=== PATIENT | male | born 1970 | race Caucasian/White ===

== ENCOUNTER 2022-09-27 09:05 | Outpatient (REF) | payer OTHER, SELFPAY ==
[2022-09-27 11:56] LABS: Hematocrit 41.6 % (42.0-52.0); Hemoglobin 14.3 g/dl (14.0-18.0); Mean Corpuscular HGB Conc 34.4 g/dl (31.0-36.0); Mean Corpuscular Hemoglobin 34.5 pg (27.0-33.0); Mean Corpuscular Volume 100.2 fL (80.0-98.0); Mean Platelet Volume 10.2 fL (9.4-12.4); Platelet Count 258 X10*3/uL (160-400); Red Blood Count 4.15 X10*6/uL (4.60-5.80); Red Cell Distribution Width 12.6 % (11.0-16.0); White Blood Count 7.5 X10*3/uL (4.8-10.8)
[2022-09-27 12:35] LABS: Alanine Aminotransferase 26 U/L (0-40); Albumin Level 4.3 g/dL (3.5-5.0); Alkaline Phosphatase 59 U/L (39-117); Anion Gap 13 (12-20); Aspartate Amino Transferase 29 U/L (5-37); Bilirubin Total 0.4 mg/dL (0.0-1.0); Blood Urea Nitrogen 16 mg/dL (9-16); Calcium 9.4 mg/dL (8.4-10.2); Carbon Dioxide 27 mmol/L (22-29); Chloride 106 mmol/L (96-108); Cholesterol 195 mg/dL; Estimated Glomerular Filt Rate > 60; Glucose Fasting 92 mg/dL (60-99); HDL Cholesterol 47 mg/dL; LDL Cholesterol Calculated 125 mg/dl; Sodium 141 mmol/L (135-145); TSH reflex Free T4 1.25 uIU/mL (0.32-4.0); Total Protein 7.6 g/dL (6.5-8.0); Triglycerides 119 mg/dL
[2022-10-01 20:47] LABS: PSA, Ultra Sensitive 0.62 ng/mL
== END 2022-09-27 09:06 | disposition home or self-care (01) ==
LOC: HO.WFDLDS 09:05
PROVIDERS: Visit Provider Hospitalist
DX: Z00.00 Encounter for general adult medical examination without abnormal findings (principal); R35.0 Frequency of micturition; R89.9 Unspecified abnormal finding in specimens from other organs, systems and tissues; Z13.220 Encounter for screening for lipoid disorders; Z12.5 Encounter for screening for malignant neoplasm of prostate
CPT/HCPCS: 36415; 80053; 80061; 84153; 84443; 85027

== ENCOUNTER 2023-01-30 09:27 | Outpatient (REF) | payer OTHER, SELFPAY ==
[2023-01-30 11:36] LABS: MANUAL DIFF FLAG NO
[2023-01-30 11:45] LABS: Basophils Absolute Auto 0.1 X10*3/uL (0.0-0.2); Basophils Percent Auto 0.8 % (0-2); Eosinophils Absolute Auto 0.5 X10*3/uL (0.0-0.4); Eosinophils Percent Auto 5.8 % (0-4); Hematocrit 44.5 % (42.0-52.0); Hemoglobin 14.9 g/dl (14.0-18.0); Imm Gran Abs Auto 0.02 X10*3/uL (0.00-0.03); Imm Gran Pct Auto 0.3 % (0.0-0.4); Lymphocytes Percent Auto 25.9 % (20-40); Mean Corpuscular HGB Conc 33.5 g/dl (31.0-36.0); Mean Corpuscular Hemoglobin 33.3 pg (27.0-33.0); Mean Corpuscular Volume 99.3 fL (80.0-98.0); Mean Platelet Volume 9.6 fL (9.4-12.4); Monocytes Absolute Auto 0.9 X10*3/uL (0.1-1.2); Monocytes Percent Auto 11.3 % (2-11); Neutrophils Absolute Auto 4.4 x10*3/uL (2.0-8.3); Neutrophils Percent Auto 55.9 % (45-73); Platelet Count 270 X10*3/uL (160-400); Red Blood Count 4.48 X10*6/uL (4.60-5.80); Red Cell Distribution Width 12.5 % (11.0-16.0); White Blood Count 7.8 X10*3/uL (4.8-10.8)
[2023-01-30 12:34] LABS: Anion Gap 12 (12-20); Blood Urea Nitrogen 12 mg/dL (9-16); Calcium 9.1 mg/dL (8.4-10.2); Carbon Dioxide 28 mmol/L (22-29); Chloride 104 mmol/L (96-108); Estimated Glomerular Filt Rate > 60; Glucose Random 95 mg/dL (60-115); Potassium 4.6 mmol/L (3.3-5.1); Sodium 139 mmol/L (135-145)
== END 2023-01-30 09:28 | disposition home or self-care (01) ==
LOC: HO.WFDLDS 09:27
PROVIDERS: Visit Provider Hospitalist
DX: R89.9 Unspecified abnormal finding in specimens from other organs, systems and tissues (principal); I10 Essential (primary) hypertension
CPT/HCPCS: 36415; 80048; 85025

== ENCOUNTER 2024-06-07 14:06 | Outpatient (AMB) | payer OTHER, SELFPAY ==
[2024-06-07 14:25] VITALS: BP 144/77; PULSE 82; RESP 12; O2SAT 96; BMI 37.3
--- NOTE | 2024-06-07 14:25 | MHC.PC.OV ---
Vital Signs 06/07/24 14:25 Height 6 ft Weight 275 lb 6 oz BMI 37.3 BP 144/77 H Blood Pressure Location Rt brachial Position Sitting Respiration 12 Pulse 82 Pulse Source Pulse Oximeter Pulse Oximetry (%) 96 Oxygen Delivery Method Room Air Intake Visit Reasons: [facility] from [facility] Intake Note: Patient reports transferring care from Pratibha Bell DNP. Patient reports he feels he has to use the bathroom (urinate) constantly without being able to hold it. Patient is concerned due to working outside if he can have something that states he cannot be refused a bathroom in a public area. Bellhop Captain Required: No Accompanied by: Self / Same As Patient Allergies No Known Allergies Allergy (Verified 06/07/24 14:29) Tobacco use date assessed: 06/07/24 Dental Screening Dental Screen Date: 06/07/24 Did you have a dental visit in the last 12 months?: Yes Did you have a dental problem in the last 6 months where you did not have access to dental care?: No Was dental information given to patient?: Patient has dentist HPI HPI Comments History of Present Illness Details 54 year old male with a past medical history of hypertension, obesity presenting [facility] care CV: On amlodipine 5mg daily, lisinopril 20mg daily, hctz 25mg daily. BP 144/77. Reports daytime polyuria. Gets up one time to urinate at night, like clockwork at 2-3 am. Last psa normal. Not following with urology. Takes HCTZ in morning. Drinks atleast 2L water during the day. Works in asphalt/paving. It has been extremely hot for the past few weeks. ROS see HPI PHYSICAL EXAM: GENERAL: Alert and oriented x 3. NAD EYES: EOMI. Anicteric. HENT: Moist mucous membranes. No scleral icterus. No cervical lymphadenopathy. LUNGS: Clear to auscultation bilaterally. CARDIOVASCULAR: Regular rate and rhythm. No murmur. No JVD. ABDOMEN: Soft, non-tender +bs EXTREMITIES: No edema. Non-tender. SKIN: No rashes or lesions. Warm. NEUROLOGIC: No focal neurological deficits. CN II-XII grossly intact PSYCHIATRIC: Cooperative. Appropriate mood and affect [facility] Medical History Bilateral tibial fractures Hearing Loss Hypertension Surgical History No pertinent past surgical history Family History Mother Cancer Father Dementia Paternal Grandfather Dementia Social History Household Members: Spouse Housing: Apartment Alcohol intake: former Patient Tobacco Use Status: Former Tobacco user e-Cigarette/Vaping Use: Never Used Second Hand Smoke Exposure: No Substance Use Type: Marijuana service: No Current occupational status: employed Current occupational exposures/hazards: No Cognitive needs: No Hearing needs: Yes (Motor cross racing. Concern for hearing loss) Vision needs: No Questionnaire PHQ-9 Over the last 2 weeks, how often have you been bothered by any of the following problems? 1. Little interest or pleasure in doing things: not at all 2. Feeling down, depressed, or hopeless: not at all 3. Trouble falling or staying asleep, or sleeping too much: not at all 4. Feeling tired or having little energy: not at all 5. Poor appetite or overeating: not at all 6. Feeling bad about yourself - or that you are a failure or have let yourself or your family down: not at all 7. Trouble concentrating on things, such as reading the newspaper or watching television: not at all 8. Moving or speaking so slowly that other people could have noticed. Or the opposite - being so fidgety or restless that you have been moving around a lot more than usual: not at all 9. Thoughts that you would be better off or of hurting yourself in some way: not at all Total score: 0 Depression Screening Interpretation: Negative (neg) Depression Screening Done: Yes 61272 - PHQ-9 Billing: Yes Source: Developed by Drs. Fredo Bergman, Mariela Perez, Nehemias Lacy and colleagues, with an educational chantal from [employer]. Thrive Questionnaire Date Thrive assessed: 06/07/24 I am a: Patient What is your living situation today?: I have a steady place to live Within the past 12 months, did the food you bought not last and you didn't have the money to get more?: Never true Within the past 12 months, did you worry whether your food would run out before you got money to buy more?: Never true Do you have trouble paying for medicines?: No Do you have trouble getting transportation to medical appointments?: No Do you have trouble paying your heating and electricity bill?: No Do you have trouble taking care of your child, family member or friend?: No Do you have trouble with day-to-day activities such as bathing, preparing meals, shopping, managing finances, etc.?: No Are you currently unemployed and looking for a job?: No Are you interested in more education?: No Please select the resources that you would like help with: None Currently or been in a relationship where the following occur: No concerns reported THRIVE Score: 0 AUDIT C Alcohol Use Questionnaire (AUDIT-C) 1. How often do you have a drink containing alcohol?: Never 3. How often do you have six or more drinks on one occasion?: Never Total Score: 0 ANA-7 AMB Questionnaire ANA-7 Date ANA - 7 assessed: 06/07/24 Feeling nervous, anxious, or on edge: 2 = More than half the days Not being able to stop or control worryin = Not at all Worrying too much about different things: 2 = More than half the days Trouble relaxin = Not at all Being so restless that it is hard to sit still: 0 = Not at all Becoming easily annoyed or irritable: 2 = More than half the days Feeling afraid as if something awful might happen: 0 = Not at all Total ANA-7 score (0-4 normal; 5-9 mild; 10-14 moderate; 15-21 severe): 6 Source: Developed by Drs. Fredo Bergman, Mariela Perez, Nehemias Lacy and colleagues, with an educational chantal from [employer]. ANA-7 Assessment Billing ANA-7 Assessment Tool: ANA-7 Assessment 47258 Physical exam (Primary Care) Vital Signs: Last Vital Signs Pulse 82 06/07/24 14:25 Resp 12 06/07/24 14:25 BP 144/77 H 06/07/24 14:25 Pulse Ox 96 06/07/24 14:25 Oxygen Delivery Method Room Air 06/07/24 14:25 BMI result Body Mass Index 37.3 Tobacco/Smoking Status: Tobacco use Status Tobacco use date assessed 06/07/24 06/07/24 14:34 Patient Tobacco Use Status Former Tobacco user 06/07/24 14:35 e-Cigarette/Vaping Use Never Used 06/07/24 14:35 PHQ-9: PHQ-9 Score PHQ-9: Total score 0 06/07/24 14:40 Depression Screening Interpretation: Negative (neg) Thrive Assessment: Date of Thrive Assessment Date Thrive assessed 06/07/24 06/07/24 14:34 Currently or been in a relationship where the following occur: No concerns reported Assessment and Plan Assessment & Plan (1) Urinary frequency: Code(s): R35.0 - Frequency of micturition Plan: Check labs DC hctz. Increase lisinopril 20 to 40, amlodipine 5 to 10. If LE/edema occurs or BP uncontrolled will call the office (2) Hypertension: Code(s): I10 - Essential (primary) hypertension Qualifiers: Hypertension type: primary hypertension Qualified Code(s): I10 - Essential (primary) hypertension Orders: Orders Comprehensive Met. Panel 06/07/24 I10 - Essential (primary) hypertension, R71.8 - Other abnormality of red blood cells, Z12.5 - Encounter for screening for malignant neoplasm of prostate, Z13.220 - Encounter for screening for lipoid disorders TSH reflex Free T4 06/07/24 I10 - Essential (primary) hypertension, R71.8 - Other abnormality of red blood cells, Z12.5 - Encounter for screening for malignant neoplasm of prostate, Z13.220 - Encounter for screening for lipoid disorders Prostate Specific Antigen 06/07/24 I10 - Essential (primary) hypertension, R71.8 - Other abnormality of red blood cells, Z12.5 - Encounter for screening for malignant neoplasm of prostate, Z13.220 - Encounter for screening for lipoid disorders UA CC w/rflx Micro + Cult 06/07/24 I10 - Essential (primary) hypertension Hemoglobin A1c 06/07/24 I10 - Essential (primary) hypertension Complete Blood Count Auto Diff 06/07/24 I10 - Essential (primary) hypertension, R71.8 - Other abnormality of red blood cells, Z12.5 - Encounter for screening for malignant neoplasm of prostate, Z13.220 - Encounter for screening for lipoid disorders Vitamin B12 and Folate 06/07/24 I10 - Essential (primary) hypertension, R71.8 - Other abnormality of red blood cells, Z12.5 - Encounter for screening for malignant neoplasm of prostate, Z13.220 - Encounter for screening for lipoid disorders Referrals Cologuard Test Z12.11 - Encounter for screening for malignant neoplasm of colon, Z12.12 - Encounter for screening for malignant neoplasm of rectum Medications: New lisinopril 40 mg PO DAILY 90 tabs 3RF amlodipine 10 mg PO DAILY 90 tabs 3RF lisinopril 40 mg PO DAILY 90 tabs 3RF amlodipine 10 mg PO DAILY 90 tabs 3RF Discontinued amlodipine Discontinued Reason: Doctor's Order 5 mg PO DAILY 30 tabs 0RF I10 - Essential (primary) hypertension hydrochlorothiazide Discontinued Reason: Doctor's Order 25 mg PO DAILY 90 tabs 0RF I10 - Essential (primary) hypertension lisinopril Discontinued Reason: Doctor's Order 20 mg PO DAILY 30 tabs 0RF I10 - Essential (primary) hypertension Coding Level of Care Code Est Pt Level 4 (71968) Complex EM visit Add On G2211 Diagnoses Urinary frequency R35.0 Primary hypertension I10 Hypertension type: primary hypertension Additional Codes ANA-7 Assessment Billing - ANA-7 Assessment Tool: ANA-7 Assessment 39855 ([id number])
== END 2024-06-07 14:59 | disposition home or self-care (01) ==
PROVIDERS: PCP Internal Medicine; Visit Provider Internal Medicine
DX: R35.0 Frequency of micturition (principal); I10 Essential (primary) hypertension
CPT/HCPCS: 99214; G2211

== ENCOUNTER 2024-06-07 15:06 | Outpatient (REF) | payer OTHER, SELFPAY ==
[2024-06-07 17:35] LABS: MANUAL DIFF FLAG NO
[2024-06-07 17:37] LABS: Appearance Urine Clear; Color Urine Yellow; Glucose Urine UA Negative (Negative); Leukocyte Esterase Urine Negative (Negative); Nitrite Urine Negative (Negative); PH 5.5 (5.0-9.0); Urine Blood Negative (Negative); Urine Ketones Negative (Negative); Urine Protein Negative (Neg-Trace)
[2024-06-07 17:45] LABS: Basophils Absolute Auto 0.1 X10*3/uL (0.0-0.2); Basophils Percent Auto 0.6 % (0-2); Eosinophils Absolute Auto 0.3 X10*3/uL (0.0-0.4); Eosinophils Percent Auto 3.2 % (0-4); Hematocrit 43.3 % (42.0-52.0); Hemoglobin 14.8 g/dl (14.0-18.0); Imm Gran Abs Auto 0.04 X10*3/uL (0.00-0.03); Imm Gran Pct Auto 0.5 % (0.0-0.4); Lymphocytes Percent Auto 24.8 % (20-40); Mean Corpuscular HGB Conc 34.2 g/dl (31.0-36.0); Mean Corpuscular Hemoglobin 33.3 pg (27.0-33.0); Mean Corpuscular Volume 97.5 fL (80.0-98.0); Mean Platelet Volume 9.6 fL (9.4-12.4); Neutrophils Absolute Auto 4.8 x10*3/uL (2.0-8.3); Neutrophils Percent Auto 58.9 % (45-73); Platelet Count 279 X10*3/uL (160-400); Red Blood Count 4.44 X10*6/uL (4.60-5.80); White Blood Count 8.2 X10*3/uL (4.8-10.8)
[2024-06-07 17:55] LABS: Alanine Aminotransferase 46 U/L (0-40); Albumin Level 4.4 g/dL (3.5-5.0); Alkaline Phosphatase 53 U/L (39-117); Anion Gap 16 (12-20); Aspartate Amino Transferase 33 U/L (5-37); Bilirubin Total 0.5 mg/dL (0.0-1.0); Blood Urea Nitrogen 20 mg/dL (9-16); Calcium 9.7 mg/dL (8.4-10.2); Carbon Dioxide 23 mmol/L (22-29); Chloride 105 mmol/L (96-108); Estimated Glomerular Filt Rate > 60; Glucose Random 80 mg/dL (60-115); Potassium 3.5 mmol/L (3.3-5.1); Sodium 140 mmol/L (135-145); Total Protein 7.8 g/dL (6.5-8.0)
[2024-06-07 17:58] LABS: Estimated Average Glucose 105 mg/dL; Hemoglobin A1c % 5.3 % (<6.0)
[2024-06-07 18:12] LABS: TSH reflex Free T4 1.75 uIU/mL (0.32-4.0)
[2024-06-07 18:23] LABS: Folate 11.6 ng/mL (> or = 4.0); Prostate Specific Antigen 0.53 ng/mL (<0.05-4.0); Vitamin B12 736 pg/mL (200-900)
== END 2024-06-07 15:07 | disposition home or self-care (01) ==
LOC: HO.WFDLDS 15:06
PROVIDERS: Visit Provider Internal Medicine
DX: I10 Essential (primary) hypertension (principal); Z12.5 Encounter for screening for malignant neoplasm of prostate; R71.8 Other abnormality of red blood cells; Z13.220 Encounter for screening for lipoid disorders
CPT/HCPCS: 36415; 80053; 81003; 82607; 82746; 83036; 84153; 84443; 85025

== ENCOUNTER 2024-07-05 15:40 | Outpatient (AMB) | payer OTHER, SELFPAY ==
--- NOTE | 2024-07-05 15:48 | A.OFFPC_ITS ---
Vital Signs 07/05/24 15:51 Height 6 ft Weight 299 lb BMI 40.5 BP 124/72 Blood Pressure Location Lt brachial Position Sitting Pulse 74 Pulse Oximetry (%) 93 Oxygen Delivery Method Room Air Intake Visit Reasons: bp recheck Intake Note: follow up htn. Pinched nerve right side of neck. Right sided finger numbness. Allergies No Known Allergies Allergy (Verified 07/06/24 13:21) Tobacco use date assessed: 06/07/24 Dental Screening Dental Screen Date: 06/07/24 HPI HPI Comments History of Present Illness Details 54 year old male with a past medical his tory of hypertension, obesity presenting for follow up htn CV: On amlodipine 10mg daily (increased from 5mg daily), lisinopril 40mg daily (increased from 20mg daily). Normotensive. Reports daytime polyuria. Gets up one time to urinate at night, like clockwork at 2-3 am. Last psa normal. Not following with urology. Drinks atleast 2L water during the day. Works in asphalt/paving. It has been extremely hot for the past few weeks. Take off hctz with some improvement Reports right neck pain & spasm, pain in the right shoulder, painful numbness and in upper arm, distal forearm and first 3 fingers. ROS see HPI PHYSICAL EXAM: GENERAL: Alert and oriented x 3. NAD EYES: EOMI. Anicteric. HENT: Moist mucous membranes. No scleral icterus. No cervical lymphadenopathy. LUNGS: Clear to auscultation bilaterally. CARDIOVASCULAR: Regular rate and rhythm. No murmur. No JVD. ABDOMEN: Soft, non-tender +bs EXTREMITIES: No edema. Non-tender. SKIN: No rashes or lesions. Warm. NEUROLOGIC: No focal neurological deficits. CN II-XII grossly intact PSYCHIATRIC: Cooperative. Appropriate mood and affect [facility] Medical History Bilateral tibial fractures Hearing Loss Hypertension Surgical History No pertinent past surgical history Family History Mother Cancer Father Dementia Paternal Grandfather Dementia Social History Household Members: Spouse Housing: Apartment Alcohol intake: former Patient Tobacco Use Status: Former Tobacco user e-Cigarette/Vaping Use: Never Used Second Hand Smoke Exposure: No Substance Use Type: Marijuana service: No Current occupational status: employed Current occupational exposures/hazards: No Cognitive needs: No Hearing needs: Yes (Motor cross racing. Concern for hearing loss) Vision needs: No Questionnaire Thrive Questionnaire Date Thrive assessed: 06/07/24 ANA-7 AMB Questionnaire ANA-7 Date ANA - 7 assessed: 06/07/24 Source: Developed by Drs. Fredo Bergman, Mariela Perez, Nehemias Lacy and colleagues, with an educational chantal from [employer]. Physical exam (Primary Care) Vital Signs: Last Vital Signs Pulse 74 07/05/24 15:51 BP 124/72 07/05/24 15:51 Pulse Ox 93 07/05/24 15:51 Oxygen Delivery Method Room Air 07/05/24 15:51 BMI result Body Mass Index 40.5 Tobacco/Smoking Status: Tobacco use Status Tobacco use date assessed 06/07/24 07/05/24 15:55 Patient Tobacco Use Status Former Tobacco user 07/05/24 15:55 e-Cigarette/Vaping Use Never Used 07/05/24 15:55 Thrive Assessment: Date of Thrive Assessment Date Thrive assessed 06/07/24 07/05/24 15:55 Assessment and Plan Assessment & Plan (1) Cervical radiculopathy: Code(s): M54.12 - Radiculopathy, cervical region Plan: Prednisone ordered. Gabapentin prior to bed Neck xray ordered Referral to physiatry placed (2) Hypertension: Code(s): I10 - Essential (primary) hypertension Qualifiers: Hypertension type: primary hypertension Qualified Code(s): I10 - Essential (primary) hypertension Plan: Controlled on current medication Weight loss, salt restriction recommended Orders: Orders XR cervical spine 3V 07/06/24 M54.12 - Radiculopathy, cervical region, M54.2 - Cervicalgia Referrals Physiatry Referral M54.12 - Radiculopathy, cervical region, M54.2 - Cervicalgia Medications: New gabapentin 600 mg (2 x 300 mg) PO BEDTIME 180 caps 0RF 90 days prednisone 40 mg (2 x 20 mg) PO DAILY 10 tabs 0RF 5 days Coding Level of Care Code Est Pt Level 4 (60823) Complex EM visit Add On G2211 Diagnoses Cervical radiculopathy M54.12 Primary hypertension I10 Hypertension type: primary hypertension
[2024-07-05 15:51] VITALS: BP 124/72; PULSE 74; O2SAT 93; BMI 40.5
== END 2024-07-05 16:24 | disposition home or self-care (01) ==
PROVIDERS: PCP Internal Medicine; Visit Provider Internal Medicine
DX: M54.12 Radiculopathy, cervical region (principal); I10 Essential (primary) hypertension
CPT/HCPCS: 99214; G2211

== ENCOUNTER 2024-07-06 14:00 | Outpatient (REF) | payer OTHER, SELFPAY ==
--- NOTE | ~2024-07-06 | XR_ITS ---
EXAMINATION: XR CERVICAL SPINE CLINICAL INFORMATION: Radiculopathy, cervical region. COMPARISON: None available. TECHNIQUE: 3 views of the cervical spine were obtained. FINDINGS: Mild straightening of the normal cervical lordosis. No fractures. Jqfc-cn-[id number] degenerative disc disease in the cervical spine, most notable at C5-C6 and C6-C7, characterized by endplate and uncovertebral osteophytes. Mild facet arthropathy. Pre-vertebral soft tissues are normal. Vertebral body heights are normal. No spondylolisthesis. XR/XR cervical spine 3V IMPRESSION: Tdfz-ns-[id number] degenerative disc disease in the cervical spine, most notable at C5-C6 and C6-C7. Electronically signed by: Po Spicer MD 07/29/2024 07:49 PM EDT
== END 2024-07-06 14:01 | disposition home or self-care (01) ==
LOC: HO.HMGCX 14:00
PROVIDERS: PCP Internal Medicine; Visit Provider Physician Assistant
DX: M54.12 Radiculopathy, cervical region (principal); M54.2 Cervicalgia
CPT/HCPCS: 72040

== ENCOUNTER 2025-01-06 08:45 | Outpatient (AMB) | payer OTHER, SELFPAY ==
[2025-01-06 08:58] VITALS: BP 151/76; PULSE 68; RESP 16; O2SAT 99; BMI 43.0
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
[2025-01-06 09:09] VITALS: BP 145/79
== END 2025-01-06 09:22 | disposition home or self-care (01) ==
PROVIDERS: PCP Internal Medicine; Visit Provider Internal Medicine
DX: M25.561 Pain in right knee (principal); M25.562 Pain in left knee; G89.29 Other chronic pain; I10 Essential (primary) hypertension

== ENCOUNTER → 2025-01-06 08:45 | Outpatient (BNVA) | payer OTHER, SELFPAY | PROVIDERS: PCP Internal Medicine; Visit Provider Internal Medicine | DX: M25.561 Pain in right knee (principal); M25.562 Pain in left knee; G89.29 Other chronic pain; I10 Essential (primary) hypertension; E66.9 Obesity, unspecified; Z68.41 Body mass index [BMI] 40.0-44.9, adult; Z79.899 Other long term (current) drug therapy | CPT/HCPCS: 99212 ==

== ENCOUNTER 2025-01-28 15:14 | Outpatient (REF) | payer OTHER, SELFPAY ==
[2025-01-29 09:18] LABS: Estimated Average Glucose 105 mg/dL; Hemoglobin A1c % 5.3 % (<6.0)
[2025-01-29 09:32] LABS: Alanine Aminotransferase 63 U/L (0-40); Albumin Level 4.4 g/dL (3.5-5.0); Alkaline Phosphatase 64 U/L (39-117); Anion Gap 12 (12-20); Aspartate Amino Transferase 34 U/L (5-37); Bilirubin Total 0.4 mg/dL (0.0-1.0); Blood Urea Nitrogen 13 mg/dL (9-16); Calcium 9.5 mg/dL (8.4-10.2); Carbon Dioxide 24 mmol/L (22-29); Chloride 107 mmol/L (96-108); Estimated Glomerular Filt Rate > 60; Glucose Random 72 mg/dL (60-115); Potassium 4.6 mmol/L (3.3-5.1); Sodium 138 mmol/L (135-145); Total Protein 8.1 g/dL (6.5-8.0)
[2025-01-29 09:57] LABS: Folate 10.6 ng/mL (> or = 4.0); Vitamin B12 780 pg/mL (200-900)
== END 2025-01-28 15:15 | disposition home or self-care (01) ==
LOC: HO.WFDLDS 15:14
PROVIDERS: Visit Provider Internal Medicine
DX: I10 Essential (primary) hypertension (principal); R71.8 Other abnormality of red blood cells
CPT/HCPCS: 36415; 80053; 82607; 82746; 83036

== ENCOUNTER 2025-01-28 15:45 | Outpatient (AMB) | payer OTHER, SELFPAY ==
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
== END 2025-01-28 16:28 | disposition home or self-care (01) ==
LOC: HO.HMCFM 15:45
PROVIDERS: PCP Internal Medicine; Visit Provider Internal Medicine
DX: I10 Essential (primary) hypertension (principal); E66.01 Morbid (severe) obesity due to excess calories

== ENCOUNTER → 2025-02-20 08:15 | Outpatient (BNV) | payer OTHER, SELFPAY | PROVIDERS: Visit Provider Radiology Diagnostic Radiology | DX: M17.12 Unilateral primary osteoarthritis, left knee (principal); M25.462 Effusion, left knee | CPT/HCPCS: 73562 ==

== ENCOUNTER 2025-02-20 08:56 | Outpatient (AMB) | payer OTHER, SELFPAY ==
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
[2025-02-20 09:17] VITALS: BMI 43.0
== END 2025-02-20 09:25 | disposition home or self-care (01) ==
LOC: HO.HOS 08:57
PROVIDERS: PCP Internal Medicine; Visit Provider Orthopaedic Surgery
DX: S83.241A Other tear of medial meniscus, current injury, right knee, initial encounter (principal)
CPT/HCPCS: 99203; G2211

== ENCOUNTER 2025-02-20 13:39 | Outpatient (REF) | payer OTHER, SELFPAY ==
--- NOTE | ~2025-02-20 | XR_ITS ---
XR KNEE JUAN 3V HISTORY: Knee pain. COMPARISON: None. TECHNIQUE: 3 views of each knee were obtained. FINDINGS: RIGHT KNEE: No fracture, dislocation, or suspicious bone lesion. Normal alignment. Moderate to severe lateral compartment osteoarthrosis, with milder changes in the medial and patellofemoral compartments. Small suprapatellar joint effusion present. Soft tissues appear normal. LEFT KNEE: No fracture, dislocation, or suspicious bone lesion. Normal alignment. Mild medial compartment osteoarthrosis, with milder changes of the lateral and patellofemoral compartments. No evidence of joint effusion. Soft tissues appear normal. XR/XR Knee Juan 3V IMPRESSION: LEFT KNEE: 1. Moderate to severe lateral compartment osteoarthrosis. Small joint effusion. RIGHT KNEE: 1. Mild medial compartment osteoarthrosis. Electronically signed by: Po Rock MD 03/20/2025 02:55 PM EDT
== END 2025-02-20 13:40 | disposition home or self-care (01) ==
LOC: HO.HOSX 13:39
PROVIDERS: Visit Provider Orthopaedic Surgery
DX: M25.561 Pain in right knee (principal); M25.562 Pain in left knee; S83.241A Other tear of medial meniscus, current injury, right knee, initial encounter
CPT/HCPCS: 73562; 99202

== ENCOUNTER 2025-03-02 09:11 | Outpatient (REF) | payer OTHER, SELFPAY ==
--- NOTE | ~2025-03-02 | MR_ITS ---
EXAMINATION: MR KNEE WITHOUT CONTRAST, RIGHT CLINICAL INFORMATION: Injury, tear of medial meniscus, pain, reduced range of motion, worsening over time. COMPARISON: No prior MRI. Plain films of the right knee 02/20/2025. TECHNIQUE: MRI of the right knee without contrast was performed using routine sequences on a 1.5 Darlene Siemens high-field scanner. FINDINGS: MENISCI: Medial Meniscus: Mild signal abnormality in the posterior root entry zone, suggesting intrasubstance tearing at the rudimentary level. There is minimal truncation of the free margin of the posterior horn. The medial meniscus is otherwise intact and normal in signal. Lateral Meniscus: There is irregular both superior and undersurface tearing of the anterior horn and body, consistent with degenerative type tearing. The body is extruded into the parameniscal recess. There is oblique undersurface tearing of the posterior horn as well. There is apparent meniscal cyst abutting the posterior horn root entry zone measuring 6 mm. The root entry zones appear intact. LIGAMENTS: Anterior Cruciate: Appears grossly intact and normal in signal. Posterior Cruciate: Appears grossly intact and normal in signal. Medial Collateral: Intact and normal in signal. Lateral Collateral Complex: Biceps femoris tendon, conjoined tendon, fibular collateral ligament, and popliteus tendon appear intact and normal in signal. EXTENSOR MECHANISM: Intact and normal in signal. Hoffa's fat pad is normal with no significant infiltrative changes. PATELLAR RETINACULUM: Intact and normal in signal. The medial patellofemoral ligament appears intact. BONE: There appear to be 2 old screw tracks through the tibial metadiaphysis from old surgery. Minimal patchy bone marrow signal changes present in the anterior medial tibial plateau, likely hematopoietic bone marrow changes. Irregularity of the lateral tibial plateau, with subtle T2 signal cleft (series 11, image 23), likely old healed fracture. JOINTS/CARTILAGE: Medial Compartment: Mild to moderate degenerative arthritis, with foci of cartilage thinning and eburnation, however no full-thickness defect identified. Small marginal osteophytic spurs. Lateral Compartment: Moderate to severe degenerative arthritis, likely posttraumatic in nature, with foci of full-thickness cartilage loss of both the weightbearing lateral condyle and weightbearing tibial plateau, measuring 1.9 cm in AP, by 1.4 cm in transverse diameter. There is subtle subchondral bone plate edema in both the condyle and plateau. There are small marginal osteophytes and what appears to be a healed lateral fracture as described below. Patellofemoral Compartment: Mild to moderate degenerative arthritis present with small marginal osteophytes, and moderate cartilage thinning and eburnation within the patellar apex and medial trochlea. No definite full-thickness defect or subchondral bone plate edema appreciated. JOINT FLUID AND BURSAE: There is a small joint effusion within the knee. Within the posterior intercondylar notch, there are 2 calcific loose bodies present, the larger more superiorly near the ACL attachment measures 1.0 x 1.1 x 1.4 cm, and the more inferior just abutting the superior margin of the PCL measures 1.6 x 0.9 x 0.7 cm. OTHER: No evidence of Gutierrez's cyst. Popliteal fossa structures appear normal. The musculature appear appears normal in signal. MR/MR knee RT wo con IMPRESSION: 1. Moderate to severe lateral compartment osteoarthritis, likely posttraumatic in nature, with full-thickness foci of cartilage loss and mild subchondral bone plate edema both the weightbearing condyle and tibial plateau as detailed. Probable old healed fracture of the lateral plateau. Small joint effusion. 2. Mild medial compartment osteoarthritis, and mild to moderate patellofemoral compartment arthritis. 3. Severe degenerative type tearing of the anterior horn and body of the lateral meniscus as discussed. There is also focal tearing of the posterior root entry zone. 4. Minimal truncation of the free margin of the medial meniscus posterior horn, extending into the root entry zone, consistent with minimal tearing. Remainder of the medial meniscus appears intact. 5. The cruciate ligaments are intact. 6. The medial collateral and lateral collateral stabilizers are intact. Extensor mechanism is intact. 7. There are 2 osseous loose bodies in the posterior intercondylar notch. Electronically signed by: Po Rock MD 03/04/2025 03:13 PM EDT
--- NOTE | ~2025-03-02 | XR_ITS ---
CLINICAL HISTORY: pre- mri , r/o fb metal to eye MRI Screening XR PRE MRI SCREENING Comparison: None Findings: No radiopaque foreign body. No acute fractures. No sinus fluid. Mastoids are clear. IMPRESSION: 1. No metallic foreign bodies in the orbits. This document has been electronically signed by: Arash White DO on 03/02/2025 10:02:09
== END 2025-03-02 09:12 | disposition home or self-care (01) ==
LOC: HO.MRI 09:11
PROVIDERS: PCP Internal Medicine; Visit Provider Orthopaedic Surgery
DX: S83.241A Other tear of medial meniscus, current injury, right knee, initial encounter (principal)
CPT/HCPCS: 73721

== ENCOUNTER → 2025-03-02 09:21 | Outpatient (BNV) | payer OTHER, SELFPAY | PROVIDERS: PCP Internal Medicine; Visit Provider Radiology Diagnostic Radiology | DX: Z01.818 Encounter for other preprocedural examination (principal); M17.11 Unilateral primary osteoarthritis, right knee; S83.281A Other tear of lateral meniscus, current injury, right knee, initial encounter | CPT/HCPCS: 70030; 73721 ==

== ENCOUNTER 2025-03-13 08:18 | Outpatient (REF) | payer OTHER, SELFPAY ==
--- NOTE | ~2025-03-13 | XR_ITS ---
EXAMINATION: XR SHOULDER, BILATERAL CLINICAL INFORMATION: M25.511 - Pain in right shoulder COMPARISON: None available. TECHNIQUE: AP and Y views of the bilateral shoulders. FINDINGS: RIGHT SHOULDER: Normal bone mineralization. No fracture, dislocation, or suspicious bone lesion. Normal alignment. The glenohumeral joint demonstrates mild degenerative arthritis. The AC joint demonstrates moderate to severe degenerative arthritis with significant superior and mild undersurface spurs. There is a type I acromion. No undersurface spurring. The subacromial space is preserved. Remainder of the soft tissue and bony structures appear normal. LEFT SHOULDER: Normal bone mineralization. No fracture, dislocation, or suspicious bone lesion. Normal alignment. The glenohumeral joint demonstrates mild degenerative arthritis. The AC joint demonstrates moderate to severe degenerative arthritis with significant superior and mild undersurface spurs. There is a type I acromion. No undersurface spurring. The subacromial space is preserved. There are old healed rib fractures identified of the fourth through sixth ribs. Remainder of the soft tissue and bony structures appear normal. XR/XR Shoulder Juan min 2V IMPRESSION: 1. No acute bony abnormalities in either shoulder. 2. Mild symmetric osteoarthritis of the glenohumeral joints bilaterally. 3. Moderate to severe symmetric spurring of the AC joints bilaterally. Electronically signed by: Po Rock MD 03/14/2025 12:35 PM EDT
== END 2025-03-13 08:19 | disposition home or self-care (01) ==
LOC: HO.HOSX 08:18
PROVIDERS: Visit Provider Orthopaedic Surgery
DX: M25.311 Other instability, right shoulder (principal); M25.511 Pain in right shoulder; M25.512 Pain in left shoulder
CPT/HCPCS: 73030; 99212

== ENCOUNTER → 2025-03-13 14:29 | Outpatient (BNV) | payer OTHER, SELFPAY | PROVIDERS: Visit Provider Radiology Diagnostic Radiology | DX: M25.711 Osteophyte, right shoulder (principal); M25.712 Osteophyte, left shoulder | CPT/HCPCS: 73030 ==

== ENCOUNTER 2025-03-13 14:30 | Outpatient (AMB) | payer OTHER, SELFPAY ==
[2025-03-13 14:36] VITALS: BMI 43.0
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
== END 2025-03-13 15:01 | disposition home or self-care (01) ==
LOC: HO.HOS 14:31
PROVIDERS: PCP Internal Medicine; Visit Provider Orthopaedic Surgery
DX: M25.311 Other instability, right shoulder (principal)
CPT/HCPCS: 99213; G2211

== ENCOUNTER → 2025-03-23 08:46 | Outpatient (BNV) | payer OTHER, SELFPAY | PROVIDERS: PCP Internal Medicine; Visit Provider Radiology Diagnostic Radiology | DX: M19.011 Primary osteoarthritis, right shoulder (principal); M67.813 Other specified disorders of tendon, right shoulder | CPT/HCPCS: 73221 ==

== ENCOUNTER 2025-03-23 08:47 | Outpatient (REF) | payer OTHER, SELFPAY ==
--- NOTE | ~2025-03-23 | MR_ITS ---
EXAMINATION: MRI RIGHT SHOULDER WITHOUT CONTRAST HISTORY: M25.311 - Other instability, right shoulder COMPARISON: Correlation is made with plain films of the right shoulder dated 03/13/2025. TECHNIQUE: Coronal T1, T2, and fat suppressed T2, axial fat suppressed proton density, and sagittal T2 weighted MR images of the right shoulder were obtained. FINDINGS: Bone Marrow: Bone marrow signal intensity is normal. Joint effusion: There is no glenohumeral joint effusion. Glenohumeral joint: The glenohumeral joint is maintained. AC joint: There is moderate osteoarthritis of the AC joint with cartilage loss, osteophyte formation, and subchondral marrow changes. Supraspinatus muscle/tendon: There is mild amorphous increased T2 signal intensity in the supraspinatus tendon compatible with tendinosis. No definite focal tear is seen. Normal muscle bulk. Infraspinatus muscle/tendon: The infraspinatus tendon is intact. Normal muscle bulk. Teres minor muscle/tendon: The teres minor tendon is intact. Normal muscle bulk. Subscapularis muscle/tendon: The subscapularis tendon is intact. Normal muscle bulk. Biceps tendon: The biceps tendon is intact and normally located. Glenoid labrum: The glenoid labrum is grossly unremarkable in appearance, although evaluation is limited by lack of a joint effusion. Other findings: None MR/MR shoulder RT wo con IMPRESSION: 1. Moderate osteoarthritis of the AC joint. 2. Supraspinatus tendinosis as described. No definite tear is seen. Electronically signed by: Fredo Mcelroy MD 03/24/2025 09:45 AM EDT
== END 2025-03-23 08:48 | disposition home or self-care (01) ==
LOC: HO.MRI 08:47
PROVIDERS: PCP Internal Medicine; Visit Provider Orthopaedic Surgery
DX: M25.311 Other instability, right shoulder (principal)
CPT/HCPCS: 73221

== ENCOUNTER 2025-04-29 14:01 | Outpatient (AMB) | payer OTHER, SELFPAY ==
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
[2025-04-29 13:53] VITALS: BMI 34.4
== END 2025-04-29 14:08 | disposition home or self-care (01) ==
LOC: HO.HMCFM 14:01
PROVIDERS: PCP Internal Medicine; Visit Provider Internal Medicine
DX: E66.01 Morbid (severe) obesity due to excess calories (principal); E78.5 Hyperlipidemia, unspecified; I10 Essential (primary) hypertension

== ENCOUNTER → 2025-04-29 14:01 | Outpatient (BNVA) | payer OTHER, SELFPAY | PROVIDERS: PCP Internal Medicine; Visit Provider Internal Medicine | DX: I10 Essential (primary) hypertension (principal); E66.01 Morbid (severe) obesity due to excess calories; E78.5 Hyperlipidemia, unspecified ==

== ENCOUNTER 2025-05-01 14:37 | Outpatient (AMB) | payer OTHER, SELFPAY ==
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
[2025-05-01 14:41] VITALS: BMI 34.4
== END 2025-05-01 14:54 | disposition home or self-care (01) ==
LOC: HO.HOS 14:37
PROVIDERS: PCP Internal Medicine; Visit Provider Orthopaedic Surgery
DX: M25.312 Other instability, left shoulder (principal); M25.511 Pain in right shoulder
CPT/HCPCS: 99214; G2211

== ENCOUNTER → 2025-05-01 14:37 | Outpatient (BNVA) | payer OTHER, SELFPAY | PROVIDERS: PCP Internal Medicine; Visit Provider Orthopaedic Surgery | DX: M25.312 Other instability, left shoulder (principal); M25.511 Pain in right shoulder | CPT/HCPCS: 99212 ==

== ENCOUNTER 2025-05-06 17:49 | Outpatient (REF) | payer OTHER, SELFPAY ==
--- NOTE | ~2025-05-06 | MR_ITS ---
CLINICAL HISTORY: M25.312 - Other instability, left shoulder MR left shoulder without gadolinium Comparison: DX/SR - XR SHOULDER BO MIN 2V - 03/13/25 14:29 EDT Findings: No acute fracture or pathologic bone lesion. A small nonaggressive appearing exostosis is present along the posterior surgical neck of the humerus. Severe acromioclavicular osteoarthritis with prominent periarticular edema, which can be associated with pain. A trace amount of fluid is present within the subacromial subdeltoid bursa. Mild glenohumeral osteoarthritis. Mild degenerative tearing of the posterosuperior glenoid labrum. No glenohumeral joint effusion. A partial-thickness intrasubstance tear of the supraspinatus tendon insertion measures up to 9 mm medial to lateral and anterior to posterior and is up to high-grade. The tear may extend to the bursal surface. The tear is superimposed on tendinopathy. Minimal low-grade partial-thickness interstitial tearing within the infraspinatus. The subscapularis and teres minor tendons are intact. Moderate to severe atrophy and fatty replacement of the teres minor muscle, which is idiopathic. The long head of the biceps is intact. IMPRESSION: 1. High-grade partial-thickness intrasubstance tear of the supraspinatus tendon insertion superimposed on tendinopathy. Minimal low-grade partial-thickness interstitial tearing within the infraspinatus. 2. Severe acromioclavicular osteoarthritis with prominent periarticular edema, which can be associated with pain. Mild subacromial subdeltoid bursitis. 3. Mild glenohumeral osteoarthritis. Small benign exostosis along the posterior humeral surgical neck. This document has been electronically signed by: Arash White DO on 05/08/2025 10:00:11
== END 2025-05-06 17:50 | disposition home or self-care (01) ==
LOC: HO.MRI 17:49
PROVIDERS: PCP Internal Medicine; Visit Provider Orthopaedic Surgery
DX: M25.312 Other instability, left shoulder (principal)
CPT/HCPCS: 73221

== ENCOUNTER → 2025-05-06 18:04 | Outpatient (BNV) | payer OTHER, SELFPAY | PROVIDERS: PCP Internal Medicine; Visit Provider Radiology Diagnostic Radiology | DX: S46.012A Strain of muscle(s) and tendon(s) of the rotator cuff of left shoulder, initial encounter (principal) | CPT/HCPCS: 73221 ==

== ENCOUNTER 2025-06-12 14:50 | Outpatient (AMB) | payer OTHER, SELFPAY ==
--- OUTSIDE RECORDS SUMMARY | 2024-12-17 13:55 | XMS_ITS | Encounter Summary ---
Author Organization [facility] Address [address] [place] [phone] Phone Care Team Providers Care Assistant County Attorney Name Role Phone Gwendolyn Desir MD Primary Care Provider Encounter Details Date Type Department Care Team (Late st Contact Info) Description 12/17/2024 12:55 PM EST Hospital Encounter [facility] [address] [place] [id number] Edwina Nieves CNP [address] [place] [address] [email or web address] Social History Tobacco Use Types Packs/Day Years Used Date Smoking Tobacco: Never Smokeless Tobacco: Never Education Answer Date Recorded Are you interested in more education? Not on nicko e 12/17/2024 Are you concerned about learning? Not on file 12/17/2024 No 12/17/2024 No 12/17/2024 Digital Access Answer Date Recorded No 12/17/2024 No 12/17/2024 Reliable internet access at home? Not on file 12/17/2024 Device with a working camera? Not on file Sex and Gender Information Value Date Recorded Sex Assigned at Not on file Legal Sex Male 9:34 PM EDT Gender Identity Not on file Sexual Orientation Not on file documented as of this encounter Plan of Treatment Not on file documented as of this encounter Procedures Procedure Name Priority Date/Time Associated Diagnosis Comments XR KNEE 4 OR MORE VIEWS (RIGHT) Urgent/patient waiting 12/17/2024 1:18 PM EST Acute pain of right knee documented in this encounter Results * XR KNEE 4 OR MORE VIEWS (RIGHT) (12/17/2024 1:18 PM EST) Anatomical Region Laterality Modality Knee Right Computed Radiogr aphy 12/17/2024 1:32 PM EST Impressions 12/17/2024 1:34 PM EST FINDINGS/IMPRESSION: Right Knee: No acute fracture or dislocation. Severe tricompartmental degenerative changes of the knee joint, most marked at the lateral tibiofemoral compartment. No effusion. Narrative 12/17/2024 1:34 PM EST XR KNEE 4 OR MORE VIEWS (RIGHT) Referring clinician's provided indication for this examination in [facility]: Pain; on ice/ yesterday- stable ligaments ( knee ) full shoulder ROM, no clavicular abnormality COMPARISON: None. Procedure Note Kulwant Durand MD - 12/17/2024 XR KNEE 4 OR MORE VIEWS (RIGHT) Referring clinician's provided indication for this examination in [facility]:Pain; on ice/ yesterday- stable ligaments ( knee ) full shoulder ROM, noclavicular abnormality COMPARISON: None. IMPRESSION: FINDINGS/IMPRESSION: Right Knee: No acute fracture or dislocation. Severe tricompartmentaldegenerative changes of the knee joint, most marked at the lateraltibiofemoral compartment. No effusion. us Edwina Nieves TRAFFIC I MANAGER IMG XR LOWER EXTREMITY Carolin l Result documented in this encounter Visit Diagnoses Not on filedocumented in this encounter Care Teams Assistant County Attorney Relationship Specialty Start Date End Date Gwendolyn Desir MD PCP - General Internal Medicine 12/17/24 documented as of this encounter Additional Source Comments The information contained in this document represents components of the legal health record. It is not the complete legal health record.[facility]
--- NOTE | 2025-06-12 14:53 | MHC.OFFVIS ---
Vital Signs 06/12/25 15:29 Height 6 ft Weight 235 lb BMI 31.9 BP 128/78 Pulse 72 Pulse Oximetry (%) 99 Intake Visit Reasons: PreOp/MRI Review RT Shld 06/27/25 Intake Note: Westley is a 55 year old male who presents with complaints of progressively worsening right shoulder pain. He describes his pain as sharp in nature. The patient also reports left shoulder pain. At this point his right shoulder pain is more bothersome than his his left. His right shoulder pain has gotten worse over the last few years in spite of continued non operative treatments. He has tried Tylenol and anti-inflammatory medicines which gave him minimal relief. He has also done physical therapy exercises which aggravated his pain. The patient has difficulty lifting his right hand above shoulder height due to the pain. At this point his right shoulder pain is interfering with his activities of daily living and his ability to sleep well through the night. Allergies No Known Allergies Allergy (Verified 06/12/25 15:27) Medication List - Last Reconciled 06/12/25 by Geeta Perez RN amlodipine 10 mg PO DAILY blood pressure test kit-large As directed lisinopril 40 mg PO DAILY Zepbound (tirzepatide (weight loss)) 7.5 mg (0.5 mL) subcut QWEEK [facility] Medical History Hx of fracture of rib Finger numbness Neck pain Bilateral shoulder pain Bilateral knee pain Anxiety Snores Bilateral tibial fractures Hearing Loss Hypertension Surgical History History of removal of retained hardware (~2001) History of surgery on extremity (1999) Family History Mother Cancer Father Dementia Paternal Grandfather Dementia Social History Household Members: Spouse Housing: Apartment Are you a primary lead caregiver to a significant other at home: No Do you presently have visiting nurse or other home services: No 75 years or older and lives alone: No Alcohol intake: former Patient Tobacco Use Status: Current someday Tobacco user Tobacco use type: Cigarette e-Cigarette/Vaping Use: Never Used Second Hand Smoke Exposure: Yes (S.O. smokes) Substance Use Type: Marijuana service: No Current occupational status: employed Current occupational exposures/hazards: No Cognitive needs: No Hearing needs: Yes (Motor cross racing. Concern for hearing loss) Vision needs: No Physical Exam Vital Signs: Last Vital Signs Pulse 72 06/12/25 15:29 BP 128/78 06/12/25 15:29 Pulse Ox 99 06/12/25 15:29 BMI result Body Mass Index 31.9 Const Other: Well-nourished well-developed very friendly male awake alert and oriented x3 in no acute distress Extrem Other: Right shoulder examination shows slightly decreased range of motion when compared to his left shoulder, 4+ out of 5 strength with supraspinatus testing, positive impingement signs, tenderness over his acromioclavicular joint, no instability Results Reviewed Results Reviewed: MRI of the patient's right shoulder show severe acromioclavicular joint narrowing, a type 2 acromion, signal change within the supraspinatus tendon most likely due to rotator cuff tendinosis Assessment & Plan Assessment & Plan (1) Impingement of right shoulder: Code(s): M25.811 - Other specified joint disorders, right shoulder Category: Medical Plan Mr. Cole presents with right shoulder pain due to impingement syndrome and acromioclavicular joint arthritis. I had a lengthy discussion with the patient regarding the treatment options. At this point he has failed continued non operative treatments. The risks and benefits of right shoulder surgery were discussed at length with the patient. The patient wishes to proceed with surgery. Surgery will most likely involve right shoulder arthroscopic distal clavicle excision and right shoulder arthroscopic acromioplasty. The patient was given a prescription for oxycodone at his preoperative appointment. He will follow-up as instructed. Feel free to call me at any time should questions regarding his orthopedic management arise. I spent 22 minutes in reviewing the patient's records and imaging studies, seeing the patient and documenting in the medical record. Medications: New oxycodone Partial Fill upon patient request. Take 1-2 tabs every 4 hours as needed following her right shoulder surgery. 10 mg (2 x 5 mg) PO Q4H PRN 40 tabs 0RF pain Coding Level of Care Code Est Pt Level 3 (96733) Complex EM visit Add On G2211 Diagnoses Impingement of right shoulder M25.811
[2025-06-12 15:29] VITALS: BP 128/78; PULSE 72; O2SAT 99; BMI 31.9
== END 2025-06-12 15:59 | disposition home or self-care (01) ==
LOC: HO.HOS 14:51
PROVIDERS: PCP Internal Medicine; Visit Provider Orthopaedic Surgery
DX: M25.811 Other specified joint disorders, right shoulder (principal)
CPT/HCPCS: 99213

== ENCOUNTER → 2025-06-12 14:50 | Outpatient (BNVA) | payer OTHER, SELFPAY | PROVIDERS: PCP Internal Medicine; Visit Provider Orthopaedic Surgery | DX: Z01.818 Encounter for other preprocedural examination (principal); M25.811 Other specified joint disorders, right shoulder | CPT/HCPCS: 99212 ==

== ENCOUNTER 2025-06-16 09:03 | Outpatient (AMB) | payer OTHER, SELFPAY ==
--- OUTSIDE RECORDS SUMMARY | 2024-12-17 13:55 | XMS_ITS | Encounter Summary ---
Author Organization [facility] Address [address] [place] [phone] Phone Care Team Providers Care Color Sprayer Name Role Phone Gwendolyn Desir MD Primary Care Provider Encounter Details Date Type Department Care Team (Late st Contact Info) Description 12/17/2024 12:55 PM EST Hospital Encounter [facility] [address] [place] [phone] Edwina Nieves CNP [address] [place] [address] [email or web address] Social History Tobacco Use Types Packs/Day Years [...] clinician's provided indication for this examination in [facility]: Pain; on ice/ yesterday- stable ligaments ( knee ) full shoulder ROM, no clavicular abnormality COMPARISON: None. Procedure Note Kulwant Durand MD - 12/17/2024 XR KNEE 4 OR MORE VIEWS (RIGHT) Referring clinician's provided indication for this examination in [facility]:Pain; on ice/ yesterday- stable ligaments ( knee ) full shoulder ROM, noclavicular abnormality COMPARISON: None. IMPRESSION: FINDINGS/IMPRESSION: Right Knee: No acute fracture or dislocation. Severe tricompartmentaldegenerative changes of the knee joint, most marked at the lateraltibiofemoral compartment. No effusion. us Edwina Nieves SOLAR FIELD SERVICE TECHNICIAN IMG XR LOWER EXTREMITY Carolin l Result documented in this encounter Visit Diagnoses Not on filedocumented in this encounter Care Teams Color Sprayer Relationship Specialty Start Date End Date Gwendolyn Desir MD PCP - General Internal Medicine 12/17/24 documented as of this encounter Additional Source Comments The information contained in this document represents components of the legal health record. It is not the complete legal health record.[facility]
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
[2025-06-16 09:23] VITALS: BP 116/78; PULSE 75; RESP 14; TEMP 36.9; O2SAT 98; BMI 32.6
== END 2025-06-16 10:03 | disposition home or self-care (01) ==
LOC: HO.HMCFM 09:03
PROVIDERS: PCP Internal Medicine; Visit Provider Internal Medicine
DX: Z01.818 Encounter for other preprocedural examination (principal)

== ENCOUNTER → 2025-06-16 09:03 | Outpatient (BNVA) | payer OTHER, SELFPAY | PROVIDERS: PCP Internal Medicine; Visit Provider Internal Medicine | DX: Z01.810 Encounter for preprocedural cardiovascular examination (principal); M25.311 Other instability, right shoulder; I10 Essential (primary) hypertension; E66.01 Morbid (severe) obesity due to excess calories; E78.5 Hyperlipidemia, unspecified; Z13.0 Encounter for screening for diseases of the blood and blood-forming organs and certain disorders involving the immune mechanism; Z13.228 Encounter for screening for other metabolic disorders; Z13.31 Encounter for screening for depression | CPT/HCPCS: 36415; 80053; 80061; 83036; 85025; 96127; 99212 ==

== ENCOUNTER 2025-06-16 10:11 | Outpatient (REF) | payer OTHER, SELFPAY ==
[2025-06-16 11:35] LABS: MANUAL DIFF FLAG NO
[2025-06-16 11:43] LABS: Hematocrit 43.1 % (42.0-52.0); Hemoglobin 14.5 g/dl (14.0-18.0); Imm Gran Abs Auto 0.02 X10*3/uL (0.00-0.03); Imm Gran Pct Auto 0.3 % (0.0-0.4); Lymphocytes Absolute Auto 1.5 X10*3/uL (1.2-4.9); Mean Corpuscular HGB Conc 33.6 g/dl (31.0-36.0); Mean Corpuscular Hemoglobin 32.5 pg (27.0-33.0); Mean Corpuscular Volume 96.6 fL (80.0-98.0); NRBC Abs Auto 0.000 X10*3/uL (0.0-0.012); NRBC Pct Auto 0.0 /100WBC (0.0-0.2); Platelet Count 273 X10*3/uL (160-400); Red Blood Count 4.46 X10*6/uL (4.60-5.80); White Blood Count 6.5 X10*3/uL (4.8-10.8)
[2025-06-16 12:23] LABS: Alanine Aminotransferase 35 U/L (0-40); Albumin Level 4.7 g/dL (3.5-5.0); Alkaline Phosphatase 79 U/L (39-117); Anion Gap 11 (12-20); Aspartate Amino Transferase 26 U/L (5-37); Blood Urea Nitrogen 16 mg/dL (9-16); Calcium 9.4 mg/dL (8.4-10.2); Carbon Dioxide 26 mmol/L (22-29); Chloride 104 mmol/L (96-108); Cholesterol 189 mg/dL (<200); Estimated Glomerular Filt Rate > 60; HDL Cholesterol 35 mg/dL (>40); Potassium 4.4 mmol/L (3.3-5.1); Sodium 137 mmol/L (135-145); Total Protein 7.9 g/dL (6.5-8.0); Triglycerides 115 mg/dL (<150)
== END 2025-06-16 10:12 | disposition home or self-care (01) ==
LOC: HO.WFDLDS 10:11
PROVIDERS: Visit Provider Internal Medicine
DX: Z13.89 Encounter for screening for other disorder (principal)
CPT/HCPCS: 36415; 80053; 80061; 85025

== ENCOUNTER 2025-06-27 07:26 | Day surgery (SDC) | payer OTHER, SELFPAY ==
[2025-06-11 15:45] VITALS: BMI 32.3
--- NOTE | 2025-06-25 14:45 | HO.ANESPROP2 ---
Documented by User: Elin Pineda NP 06/25/25 14:47 HPI - Anesthesia Eval Consult details Narrative: 55yo M for Right Shoulder Arthroscopy,distal clavicle excision,acromioplasty Medically optimized per PCP PMFSH Active Problems Active Problems: All Active Problems Impingement of right shoulder (Acute) Rotator cuff insufficiency of left shoulder (Acute) Dyslipidemia (Acute) Rotator cuff insufficiency of right shoulder (Acute) Tear of medial meniscus of right knee (Acute) Right knee pain (Acute) Left knee pain (Acute) Obesity, Class III, BMI 40-49.9 (morbid obesity) (Acute) Bilateral shoulder pain (Acute) Bilateral knee pain (Acute) Elevated MCV (Acute) Neck pain (Acute) Cervical radiculopathy (Acute) Abnormal laboratory test result (Acute) BMI 36.0-36.9,adult (Acute) Normal physical exam (Acute) Urinary frequency (Acute) Abnormal prostate on physical examination (Acute) Hypertension (Acute) Past Medical History Medical History Hx of fracture of rib Finger numbness Neck pain Bilateral shoulder pain Bilateral knee pain Anxiety Snores Bilateral tibial fractures Hearing Loss Hypertension Family History Family History Mother Cancer Father Dementia Paternal Grandfather Dementia Surgical History Surgical History History of removal of retained hardware (~2001) History of surgery on extremity (1999) Social History Social History Household Members: Spouse Housing: Apartment Are you a primary regular senior care provider to a significant other at home: No Do you presently have visiting nurse or other home services: No Alcohol intake: former Patient Tobacco Use Status: Current someday Tobacco user Tobacco use type: Cigarette e-Cigarette/Vaping Use: Never Used Second Hand Smoke Exposure: Yes (S.O. smokes) Substance Use Type: Marijuana Substance Use Type Other:: gummies Have you been hit, kicked, punched, or otherwise hurt by someone within the past year? If so, by whom?: No Are you DNR?: No Advance Directives: No Advance Directives Information Provided: Yes Advance Directives on File: No service: No Current occupational status: employed Current occupational exposures/hazards: No Cognitive needs: No Hearing needs: Yes (Motor cross racing. Concern for hearing loss) Vision needs: No Meds Allergies Allergy/AdvReac Type Severity Reaction Status Date / Time No Known Allergies Allergy Verified 06/16/25 09:19 Exam Height,Weight and Vital Signs: Height 6 ft Weight 108.136 kg Pertinent Lab Results Pertinent Lab Results: Laboratory Tests 06/16/25 10:13 WBC 6.5 Hgb 14.5 Hct 43.1 Plt Count 273 Sodium 137 Potassium 4.4 Chloride 104 Carbon Dioxide 26 BUN 16 Creatinine 0.97 Narrative Narrative: EKG 06/2025 NSR @ 69 Assessment and Plan Assessment Anesthesia Assessment: Chart Reviewed Documented by User: Sandra Banegas MD 06/27/25 09:14 PMFSH Past Medical History Medical History Hx of fracture of rib Finger numbness Neck pain Bilateral shoulder pain Bilateral knee pain Anxiety Snores Bilateral tibial fractures Hearing Loss Hypertension Family History Family History Mother Cancer Father Dementia Paternal Grandfather Dementia Family history of problems with anesthesia: No Surgical History Surgical History History of removal of retained hardware (~2001) History of surgery on extremity (1999) History of Problems with Anesthesia: No Social History Social History Household Members: Spouse Housing: Apartment Are you a primary regular senior care provider to a significant other at home: No Do you presently have visiting nurse or other home services: No Alcohol intake: former Patient Tobacco Use Status: Current someday Tobacco user Tobacco use type: Cigarette e-Cigarette/Vaping Use: Never Used Second Hand Smoke Exposure: Yes (S.O. smokes) Substance Use Type: Marijuana Substance Use Type Other:: gummies Have you been hit, kicked, punched, or otherwise hurt by someone within the past year? If so, by whom?: No Are you DNR?: No Advance Directives: No Advance Directives Information Provided: Yes Advance Directives on File: No service: No Current occupational status: employed Current occupational exposures/hazards: No Cognitive needs: No Hearing needs: Yes (Motor cross racing. Concern for hearing loss) Vision needs: No Meds Allergies Allergy/AdvReac Type Severity Reaction Status Date / Time No Known Allergies Allergy Verified 06/16/25 09:19 Exam Airway Mallampati Class: II TM Dist: >3cm Neck ROM: Full Heart: rrr Lungs: cta Assessment and Plan Assessment Anesthesia Assessment: Anesthesia Plan Discussed Final Anesthetic Review Family History of Problems with Anesthesia: No History of Problems with Anesthesia: No NPO: Yes ASA Class: II Final Preanesthetic Review: No Changes in Pt Med Stat, Meds/Allgs Chart Reviewed, Consent Obtained/Reviewed and Anes Risks/Benef Reviewed Patient Risk: Intermediate Procedure Risk: Low Anesthetic Plan Anesthetic Plan: MAC: Disposition: Standard PACU
[2025-06-27] VITALS (8 sets, daily range): BP systolic 107–121; BP diastolic 60–78; PULSE 60–73; RESP 13–16; TEMP 36.1–36.3; O2SAT 98–100
--- NOTE | 2025-06-27 09:56 | PC.NURSE ---
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 pt tolerated well.
--- NOTE | 2025-06-27 11:44 | P.BOP_ITS ---
Brief Operative Note Date of Service: 06/27/25 Pre-op diagnosis: Right shoulder impingement syndrome, right shoulder acromioclavicular joint arthritis Post-op diagnosis: other (Right shoulder impingement syndrome, right shoulder acromioclavicular joint arthritis, right shoulder adhesive capsulitis) Procedure: Right shoulder arthroscopic distal clavicle excision, right shoulder arthroscopic acromioplasty, right shoulder arthroscopic anterior capsular release, right shoulder manipulation under anesthesia Implants: none Surgeon: Connor Wahl MD Anesthesia: GETA and regional Was an Custom Van Converter used for this Procedure?: No Estimated blood loss (mL): 10 Pathology: none sent Condition: stable Disposition: PACU
--- NOTE | 2025-06-27 11:45 | P.OP_ITS ---
Operative Note Operative Note Date of Service: 06/27/25 Narrative: After the patient was identified as Westley Cole and his right shoulder was initialed by myself the patient was brought to the holding area where a right shoulder interscalene regional block was performed by the anesthesiologist in routine fashion. The patient was then brought to the operating room where general anesthesia was induced by the anesthesiologist in routine fashion. The patient was given 2 g of IV Ancef preoperatively for infection prophylaxis. Examination under anesthesia of the patient's right shoulder showed decreased passive range of motion when compared to the left shoulder. The patient's right shoulder had passive forward flexion to 140 degrees compared to 170 degrees, external rotation to 40 degrees compared to 60 degrees, and internal rotation to 50 degrees compared to 60 degrees. The patient was gently positioned in the beach chair position with all bony prominences well padded. The patient's right shoulder region and upper extremity were prepped and draped in sterile fashion. A formal time-out was completed. A #11 scalpel blade was used to make a posterior portal 2 cm inferior and 1 cm medial to the posterolateral corner of the acromion. Blunt trocar technique was used to enter the glenohumeral joint in routine fashion. An anterior portal was made just lateral to the coracoid process after proper positioning was confirmed using a spinal needle. Diagnostic arthroscopy showed minimal degenerative changes of the glenoid and humeral head articular surfaces. There was no evidence of rotator cuff tearing. There was no evidence of injury to the biceps tendon or its insertion onto the glenoid. There was inflammation of the anterior joint capsule consistent with adhesive capsulitis. The ArthroCare Wand was then used to perform an anterior capsular release between the inferior border of the biceps tendon and the superior border of the subscapularis tendon. The arthroscope was then placed from the posterior portal into the subacromial space. A lateral portal was made 2 fingerbreadths lateral to the anterior lateral corner of the acromion. The ArthroCare Wand was used to ablate soft tissues along the undersurface of the acromion as well as to excise the coracoacromial ligament. There was a sharp spur along the undersurface of the acromion which was removed using the hooded bur. The arthroscope was then placed into the lateral portal and the acromio plasty was completed with the bur in the posterior portal using the posterior aspect of the acromion as a cutting block. The ArthroCare Wand was then brought in through the anterior portal and was used to ablate soft tissues along the acromioclavicular joint and distal clavicle. The posterior and superior ligamentous structures were left intact. A distal clavicle excision of 8 mm was performed using the fluted bur. Any remaining bursal tissue was removed using the arthroscopic shaver. The subacromial space was irrigated and then drained. All arthroscopic instruments were removed. A gentle manipulation under anesthesia was then performed. Full passive range of motion was easily attained. The 3 portals were closed with 3-0 nylon interrupted suture. The subacromial space was injected with Marcaine. Dry sterile dressing was placed over all incisions. The patient's right upper extremity was placed into a sling. The patient was awoken and extubated in the operating room. The patient was transferred to the recovery room in stable condition.
== END 2025-06-27 13:19 | disposition home or self-care (01) ==
PROVIDERS: PCP Internal Medicine; Visit Provider Orthopaedic Surgery
PROC: (CPT 29805; principal; 2025-06-27 10:30)
DX: M75.41 Impingement syndrome of right shoulder (principal); M19.011 Primary osteoarthritis, right shoulder; M75.01 Adhesive capsulitis of right shoulder; M25.511 Pain in right shoulder; I10 Essential (primary) hypertension; H91.90 Unspecified hearing loss, unspecified ear; Z79.899 Other long term (current) drug therapy; Z79.85 Long-term (current) use of injectable non-insulin antidiabetic drugs; Z87.81 Personal history of (healed) traumatic fracture; Z87.891 Personal history of nicotine dependence
CPT/HCPCS: 29824; 29825; 29826; J0131; J0165; J0665; J0690; J0696; J1100; J2003; J2250; J2405; J2704; J2795; J3010

== ENCOUNTER → 2025-06-27 07:26 | Outpatient (BNV) | payer OTHER, SELFPAY | PROVIDERS: PCP Internal Medicine; Visit Provider Orthopaedic Surgery | DX: M75.41 Impingement syndrome of right shoulder (principal); M19.011 Primary osteoarthritis, right shoulder | CPT/HCPCS: 29824; 29826 ==

== ENCOUNTER 2025-07-10 13:38 | Outpatient (AMB) | payer OTHER, SELFPAY ==
--- OUTSIDE RECORDS SUMMARY | 2024-12-17 13:55 | XMS_ITS | Encounter Summary ---
Author Organization [facility] Address [address] [facility] [address] [place] [phone] Phone Care Team Providers Care Orthopedics Teacher Name Role Phone Gwendolyn Desir MD Primary Care Provider Encounter Details Date Type Department Care Team (Late st Contact Info) Description 12/17/2024 12:55 PM EST Hospital Encounter [facility] [address] [place] [phone] Edwina Nieves CNP [address] [place] [address] [email or web address] Social History Tobacco Use Types Packs/Day Years [...] clinician's provided indication for this examination in [facility]: Pain; on ice/ yesterday- stable ligaments ( knee ) full shoulder ROM, no clavicular abnormality COMPARISON: None. Procedure Note Kulwant Durand MD - 12/17/2024 XR KNEE 4 OR MORE VIEWS (RIGHT) Referring clinician's provided indication for this examination in [facility]:Pain; on ice/ yesterday- stable ligaments ( knee ) full shoulder ROM, noclavicular abnormality COMPARISON: None. IMPRESSION: FINDINGS/IMPRESSION: Right Knee: No acute fracture or dislocation. Severe tricompartmentaldegenerative changes of the knee joint, most marked at the lateraltibiofemoral compartment. No effusion. us Edwina Nieves SENIOR PAYROLL SPECIALIST IMG XR LOWER EXTREMITY Carolin l Result documented in this encounter Visit Diagnoses Not on filedocumented in this encounter Care Teams Orthopedics Teacher Relationship Specialty Start Date End Date Gwendolyn Desir MD PCP - General Internal Medicine 12/17/24 documented as of this encounter Additional Source Comments The information contained in this document represents components of the legal health record. It is not the complete legal health record.[facility]
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
--- NOTE | 2025-07-10 13:48 | MHC.OFFVIS ---
Intake Visit Reasons: PO RT Shld 06/27/25 Intake Note: Westley is a 55 year old male who presents with complaints of mild intermittent discomfort in his right shoulder after undergoing right shoulder arthroscopic surgery on 06/27/2025. He continues with his home stretching program. He does take oxycodone as needed which gives him good relief. Allergies No Known Allergies Allergy (Verified 07/10/25 13:51) Medication List - Last Reconciled 07/10/25 by Connor Wahl MD amlodipine 10 mg PO DAILY blood pressure test kit-large As directed lisinopril 20 mg (1/2 x 40 mg) PO DAILY oxycodone 10 mg (2 x 5 mg) PO Q4H PRN Zepbound (tirzepatide (weight loss)) 7.5 mg (0.5 mL) subcut QWEEK NS PFSH Medical History Hx of fracture of rib Finger numbness Neck pain Bilateral shoulder pain Bilateral knee pain Anxiety Snores Bilateral tibial fractures Hearing Loss Hypertension Surgical History History of removal of retained hardware (~2001) History of surgery on extremity (1999) Family History Mother Cancer Father Dementia Paternal Grandfather Dementia Social History Household Members: Spouse Housing: Apartment Are you a primary intensive care unit nurse to a significant other at home: No Do you presently have visiting nurse or other home services: No 75 years or older and lives alone: No Alcohol intake: former Patient Tobacco Use Status: Current someday Tobacco user Tobacco use type: Cigarette e-Cigarette/Vaping Use: Never Used Second Hand Smoke Exposure: Yes (S.O. smokes) Substance Use Type: Marijuana service: No Current occupational status: employed Current occupational exposures/hazards: No Cognitive needs: No Hearing needs: Yes (Motor cross racing. Concern for hearing loss) Vision needs: No Physical Exam Extrem Other: Right shoulder examination shows that the surgical incisions are healing well, no erythema, almost full range of motion when compared to his left shoulder, minimal discomfort range of motion Assessment & Plan Assessment & Plan (1) Right shoulder pain: Code(s): M25.511 - Pain in right shoulder Category: Medical Plan Mr. Cole is doing well after undergoing right shoulder arthroscopic surgery on 06/27/2025. His sutures were removed and Steri-Strips placed over his incisions. He will continue with his home stretching program. The do's and don'ts of lifting were discussed at length with the patient. He will contact me prior to his follow-up appointment in 2 months should any questions or concerns arise. Feel free to call me at any time should questions regarding his orthopedic management arise. Medications: Changed From oxycodone Partial Fill upon patient request. Take 1-2 tabs every 4 hours as needed following her right shoulder surgery. 10 mg (2 x 5 mg) PO Q4H PRN 40 tabs 0RF pain To oxycodone Partial Fill upon patient request. 5 mg PO Q6H PRN 35 tabs 0RF pain Coding Level of Care Code Global (51276) Diagnoses Right shoulder pain M25.511
--- OUTSIDE RECORDS SUMMARY | 2025-07-10 14:22 | XMS_ITS | Clinical Summary ---
Author Organization [facility] Address [address] [facility] [address] [place], [place] [address] Phone Care Team Providers Care Jackspooler Name Role Phone Gwendolyn Desir MD Primary Care Provider Allergies No known active allergies Medications amLODIPine (NORVASC) 10 MG tablet Take 1 tablet by mouth every morning. 12/11/2024 Active lisinopril (PRINIVIL,ZESTRI L) 40 MG tablet Take 1 tablet by mouth every morning. 12/11/2024 Active naproxen (NAPROSYN) 500 MG tablet Take 1 tablet (500 mg total) by mouth 2 (two) times a day with meals. 20 tablet 12/17/2024 Active Active Problems No known active problems Social History Tobacco Use Types Packs/Day Years Used Date Smoking Tobacco: Never Smokeless Tobacco: Never Tobacco Cessation:Counseling Given: Not Answered Education Answer Date Recorded Are you interested [...] on file Sexual Orientation Not on file Last Filed Vital Signs Vital Sign Reading Time Taken Comments Blood Pressure 134/87 12/17/2024 12:36 PM EST Pulse 72 12/17/2024 12:36 PM EST Temperature 37 C (98.6 F) 12/17/2024 12:36 PM EST Respiratory Rate 18 12/17/2024 12:36 PM EST Oxygen Saturation 100% 12/17/2024 12:36 PM EST Inhaled Oxygen Concentration - - Weight - - Height - - Body Mass Index - - Plan of Treatment Health Maintenance Due Date Last Done Comments Adult Td,Tdap Booster 1971 CREATININE LEVEL 1971 LIPID PANEL 1971 POTASSIUM LEVEL 1971 DEPRESSION SCREENING 1983 HEPATITIS C SCREENING 1989 HIV ONE-TIME SCREENING (18-6 5 YEARS) 1989 COLOGUARD 2016 COLONOSCOPY 2016 COLORECTAL CANCER SCREENING 2016 FIT TEST 2016 FOBT 2016 SIGMOIDOSCOPY 2016 VIRTUAL COLONOSCOPY 2016 PNEUMOCOCCAL VACCINES (50+ y ears) (1 of 1 - PCV) 2021 ZOSTER VACCINES (1 of 2) 2021 COVID-19 VACCINE (1 - 2023-2 5 season) 2024 SMOKING STATUS SCREENING (On ce After 26 Yrs) Completed 12/17/2024 HEPATITIS A VACCINES Aged Out No long er eligible based on patient's age to complete this topic HIB VACCINES Aged Out No longer eligi ble based on patient's age to complete this topic MENINGOCOCCAL VACCINES (ACWY) Aged Out No longer eligible based on patient's age to complete this topic MENINGOCOCCAL VACCINES (B) Aged Out N o longer eligible based on patient's age to complete this topic Medical Devices Not on file [place] [address] [place] [address] NSPG PCP [employer] NON NSPG PCP [employer] NON NSPG PCP [employer] NON NSPG PCP [employer] NON NSPG PCP [employer] NON NSPG PCP [employer] Care Teams Jackspooler Relationship Specialty Start Date End Date Gwendolyn Desir MD PCP - General Internal Medicine 12/17/24 Additional Source Comments The information contained in this document represents components of the legal health record. It is not the complete legal health record.[facility]
== END 2025-07-10 14:01 | disposition home or self-care (01) ==
LOC: HO.HOS 13:39
PROVIDERS: PCP Internal Medicine; Visit Provider Orthopaedic Surgery
DX: M25.511 Pain in right shoulder (principal)
CPT/HCPCS: 99024

== ENCOUNTER → 2025-07-10 13:38 | Outpatient (BNVA) | payer OTHER, SELFPAY | PROVIDERS: PCP Internal Medicine; Visit Provider Orthopaedic Surgery | DX: M25.511 Pain in right shoulder (principal); Z98.890 Other specified postprocedural states | CPT/HCPCS: 99212 ==

== ENCOUNTER 2025-07-22 10:25 | Outpatient (AMB) | payer OTHER, SELFPAY ==
--- OUTSIDE RECORDS SUMMARY | 2024-12-17 13:55 | XMS_ITS | Encounter Summary ---
Author Organization [facility] Address [address] [place] [phone] Phone Care Team Providers Care Flexible Nanny Name Role Phone Gwendolyn Desir MD Primary Care Provider [phone] Encounter Details Date Type Department Care Team (Late st Contact Info) Description 12/17/2024 12:55 PM EST Hospital Encounter [facility] [address] [place] [phone] Edwina Nieves CNP [address] [place] [address] [email or web address] Social History Tobacco Use Types Packs/Day Years [...] clinician's provided indication for this examination in [facility]: Pain; on ice/ yesterday- stable ligaments ( knee ) full shoulder ROM, no clavicular abnormality COMPARISON: None. Procedure Note Kulwant Durand MD - 12/17/2024 XR KNEE 4 OR MORE VIEWS (RIGHT) Referring clinician's provided indication for this examination in [facility]:Pain; on ice/ yesterday- stable ligaments ( knee ) full shoulder ROM, noclavicular abnormality COMPARISON: None. IMPRESSION: FINDINGS/IMPRESSION: Right Knee: No acute fracture or dislocation. Severe tricompartmentaldegenerative changes of the knee joint, most marked at the lateraltibiofemoral compartment. No effusion. us Edwina Nieves CORN DETASSELER IMG XR LOWER EXTREMITY Carolin l Result documented in this encounter Visit Diagnoses Not on filedocumented in this encounter Care Teams Flexible Nanny Relationship Specialty Start Date End Date Gwendolyn Desir MD PCP - General Internal Medicine 12/17/24 documented as of this encounter Additional Source Comments The information contained in this document represents components of the legal health record. It is not the complete legal health record.[facility]
--- OUTSIDE RECORDS SUMMARY | 2024-12-17 13:57 | XMS_ITS | Encounter Summary ---
Author Organization [facility] Address [address] [facility] [address] [place] [phone] Phone Care Team Providers Care Electrophysiology Technician Name Role Phone Gwendolyn Desir MD Primary Care Provider Encounter Details Date Type Department Care Team (Late st Contact Info) Description 12/17/2024 12:57 PM EST Hospital Encounter [facility] [address] [place] [phone] Edwina Nieves CNP [address] [place] [address] [email or web address] Social History Tobacco Use Types Packs/Day Years [...] IMPRESSION: No fracture or dislocation. Edwina Nieves LEARNING DEVELOPER IMG XR UPPER EXTREMITY Carolin l Result documented in this encounter Visit Diagnoses Not on filedocumented in this encounter Care Teams Electrophysiology Technician Relationship Specialty Start Date End Date Gwendolyn Desir MD PCP - General Internal Medicine 12/17/24 documented as of this encounter Additional Source Comments The information contained in this document represents components of the legal health record. It is not the complete legal health record.[facility]
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
[2025-07-22 10:39] VITALS: BP 116/64; PULSE 68; RESP 14; O2SAT 98; BMI 31.7
--- OUTSIDE RECORDS SUMMARY | 2025-07-22 12:14 | XMS_ITS | Clinical Summary ---
Author Organization [facility] Address [address] [id number] Phone Care Team Providers Care Infection Control Coordinator Name Role Phone Gwendolyn Desir MD Primary [...] 2021 ZOSTER VACCINES (1 of 2) 2021 INFLUENZA VACCINE (#1) 2025 COVID-19 VACCINE (1 - 2023-2 5 season) 2025 SMOKING STATUS SCREENING (On ce After 26 [...] topic Medical Devices Not on file Insurance [facility] NON NSPG PCP [employer] NON NSPG PCP [employer] NON NSPG PCP [employer] NON NSPG PCP [employer] NON NSPG PCP [employer] NON NSPG PCP [employer] Care Teams Infection Control Coordinator Relationship Specialty Start Date End Date Gwendolyn Desir MD PCP - General Internal Medicine 12/17/24 Additional Source Comments The information contained in this document represents components of the legal health record. It is not the complete legal health record.[facility]
== END 2025-07-22 11:14 | disposition home or self-care (01) ==
LOC: HO.HMCFM 10:26
PROVIDERS: PCP Internal Medicine; Visit Provider Internal Medicine
DX: Z00.00 Encounter for general adult medical examination without abnormal findings (principal); I10 Essential (primary) hypertension; E78.5 Hyperlipidemia, unspecified

== ENCOUNTER → 2025-07-22 10:25 | Outpatient (BNVA) | payer OTHER, SELFPAY | PROVIDERS: PCP Internal Medicine; Visit Provider Internal Medicine | DX: Z00.00 Encounter for general adult medical examination without abnormal findings (principal); I10 Essential (primary) hypertension; E78.5 Hyperlipidemia, unspecified; E66.9 Obesity, unspecified; Z68.31 Body mass index [BMI] 31.0-31.9, adult; M19.90 Unspecified osteoarthritis, unspecified site; Z79.899 Other long term (current) drug therapy | CPT/HCPCS: 99396 ==

== ENCOUNTER 2025-08-05 14:12 | Outpatient (AMB) | payer OTHER, SELFPAY ==
--- OUTSIDE RECORDS SUMMARY | 2024-12-17 13:55 | XMS_ITS | Encounter Summary ---
Author Organization [facility] Address [address] [place] [phone] Phone Care Team Providers Care Road Manager Name Role Phone Gwendolyn Desir MD Primary Care Provider Encounter Details Date Type Department Care Team (Late st Contact Info) Description 12/17/2024 12:55 PM EST Hospital Encounter [facility] [address] [place] [phone] Edwina Nieves CNP [address] [place] [address] [email or web address] Social History Tobacco Use Types Packs/Day Years [...] clinician's provided indication for this examination in [facility]: Pain; on ice/ yesterday- stable ligaments ( knee ) full shoulder ROM, no clavicular abnormality COMPARISON: None. Procedure Note Kulwant Durand MD - 12/17/2024 XR KNEE 4 OR MORE VIEWS (RIGHT) Referring clinician's provided indication for this examination in [facility]:Pain; on ice/ yesterday- stable ligaments ( knee ) full shoulder ROM, noclavicular abnormality COMPARISON: None. IMPRESSION: FINDINGS/IMPRESSION: Right Knee: No acute fracture or dislocation. Severe tricompartmentaldegenerative changes of the knee joint, most marked at the lateraltibiofemoral compartment. No effusion. us Edwina Nieves HIRED HELP IMG XR LOWER EXTREMITY Carolin l Result documented in this encounter Visit Diagnoses Not on filedocumented in this encounter Care Teams Road Manager Relationship Specialty Start Date End Date Gwendolyn Desir MD PCP - General Internal Medicine 12/17/24 documented as of this encounter Additional Source Comments The information contained in this document represents components of the legal health record. It is not the complete legal health record.[facility]
--- OUTSIDE RECORDS SUMMARY | 2024-12-17 13:57 | XMS_ITS | Encounter Summary ---
Author Organization [facility] Address [address] [facility] [address] [place] [phone] Phone Care Team Providers Care Logger All Round Name Role Phone Gwendolyn Desir MD Primary Care Provider Encounter Details Date Type Department Care Team (Late st Contact Info) Description 12/17/2024 12:57 PM EST Hospital Encounter [facility] [address] [place] [phone] Edwina Nieves CNP [address] [place] [address] [email or web address] Social History Tobacco Use Types Packs/Day Years [...] IMPRESSION: No fracture or dislocation. Edwina Nieves HOURLY SALES STAFF IMG XR UPPER EXTREMITY Carolin l Result documented in this encounter Visit Diagnoses Not on filedocumented in this encounter Care Teams Logger All Round Relationship Specialty Start Date End Date Gwendolyn Desir MD PCP - General Internal Medicine 12/17/24 documented as of this encounter Additional Source Comments The information contained in this document represents components of the legal health record. It is not the complete legal health record.[facility]
--- NOTE | 2025-08-05 14:31 | A.OFFVIS_ITS ---
Intake Visit Reasons: Left shoulder pain and weakness, Right shoulder pain Intake Note: Westley is a 55 year old male who presents with complaints of progressively worsening left shoulder pain and weakness. The patient did undergo right shoulder arthroscopic surgery on 06/27/2025. He reports mild discomfort in his right shoulder. He describes his left shoulder pain as sharp and severe in nature. His left shoulder pain and weakness have gotten worse over the last few years in spite of continued non operative treatments. He has tried Tylenol and anti-inflammatory medicines which gave him minimal relief. He has also done physical therapy exercises which aggravated his pain. The patient has weakness when trying to lift his left hand above shoulder height. Allergies No Known Allergies Allergy (Verified 08/05/25 14:39) Medication List - Last Reconciled 08/06/25 by Connor Wahl MD amlodipine 10 mg PO DAILY blood pressure test kit-large As directed Zepbound (tirzepatide (weight loss)) 10 mg (0.5 mL) subcut QWEEK [facility] Medical History Hx of fracture of rib Finger numbness Neck pain Bilateral shoulder pain Bilateral knee pain Anxiety Snores Bilateral tibial fractures Hearing Loss Hypertension Surgical History History of removal of retained hardware (~2001) History of surgery on extremity (1999) Family History Mother Cancer Father Dementia Paternal Grandfather Dementia Social History Household Members: Spouse Housing: Apartment Are you a primary manager urgent care to a significant other at home: No Do you presently have visiting nurse or other home services: No Alcohol intake: former Patient Tobacco Use Status: Former Tobacco user Tobacco use type: Cigarette e-Cigarette/Vaping Use: Never Used Second Hand Smoke Exposure: Yes (S.O. smokes) Substance Use Type: Marijuana service: No Current occupational status: employed Current occupational exposures/hazards: No Cognitive needs: No Hearing needs: Yes (Motor cross racing. Concern for hearing loss) Vision needs: No Physical Exam Const Other: Well-nourished well-developed very friendly male awake alert and oriented x3 in no acute distress Extrem Other: Bilateral upper extremity examination shows good capillary refill, no skin lesions noted, normal sensation light touch Left shoulder examination shows decreased range of motion when compared to his right shoulder, 4/5 strength with supraspinatus testing, positive impingement signs, tenderness over his acromioclavicular joint, no instability Results Reviewed Results Reviewed: MRI of the patient's left shoulder shows severe acromioclavicular joint narrowing, a type 2 acromion, a full-thickness supraspinatus tendon tear Assessment & Plan Assessment & Plan (1) Right shoulder pain: Code(s): M25.511 - Pain in right shoulder Category: Medical (2) Rotator cuff insufficiency of left shoulder: Code(s): M25.312 - Other instability, left shoulder Category: Medical Plan Mr. Cole presents with progressively worsening left shoulder pain and weakness due to impingement syndrome, acromioclavicular joint arthritis and a full-thickness rotator cuff tear. I had a lengthy discussion with the patient regarding the treatment options. At this point he has failed continued non operative treatments. The risks and benefits of left shoulder surgery were discussed at length with the patient. The patient wishes to proceed with surgery. Surgery will involve left shoulder arthroscopic distal clavicle excision, left shoulder arthroscopic acromioplasty, and left shoulder mini open rotator cuff repair. The patient will be scheduled for next available date. He will follow-up as instructed. Feel free to call me at any time should questions regarding his orthopedic management arise. I spent 21 minutes in reviewing the patient's records and imaging studies, seeing the patient and documenting in the medical record. Coding Level of Care Code Est Pt Level 3 (48639) Complex EM visit Add On G2211 Diagnoses Right shoulder pain M25.511 Rotator cuff insufficiency of left shoulder M25.312
--- OUTSIDE RECORDS SUMMARY | 2025-08-05 17:29 | XMS_ITS | Clinical Summary ---
Author Organization [facility] Address [address] [facility] [address] [place], [place] [id number] Phone Care Team Providers Care Shank Threader Name Role Phone Gwendolyn Desir MD Primary [...] topic Medical Devices Not on file Insurance [facility] NON NSPG PCP [employer] NON NSPG PCP [employer] NON NSPG PCP [employer] NON NSPG PCP [employer] NON NSPG PCP [employer] NON NSPG PCP [employer] Care Teams Shank Threader Relationship Specialty Start Date End Date Gwendolyn Desir MD PCP - General Internal Medicine 12/17/24 Additional Source Comments The information contained in this document represents components of the legal health record. It is not the complete legal health record.[facility]
== END 2025-08-05 14:53 | disposition home or self-care (01) ==
LOC: HO.HOS 14:12
PROVIDERS: PCP Internal Medicine; Visit Provider Orthopaedic Surgery
DX: M25.511 Pain in right shoulder (principal); M25.312 Other instability, left shoulder
CPT/HCPCS: 99214

== ENCOUNTER → 2025-08-05 14:12 | Outpatient (BNVA) | payer OTHER, SELFPAY | PROVIDERS: PCP Internal Medicine; Visit Provider Orthopaedic Surgery | DX: M25.312 Other instability, left shoulder (principal); M25.511 Pain in right shoulder | CPT/HCPCS: 99212 ==